=== PATIENT | male | born 1940 | race African-American/Black ===

== ENCOUNTER 2018-04-30 12:34 | Inpatient (IN) | payer BC, OTHER ==
[2018-04-30 13:40] LABS: ADD MAN DIFF? NO
[2018-04-30] MEDS: SODIUM CHLORIDE 0.9% 1L BAG IV* (13:43)
[2018-04-30] MEDS: ACETAMINOPHEN 325 MG TAB PO (13:43)
[2018-04-30] MEDS: CEFEPIME 2GM/50 ML (PMX) 50 ML IVPB ×2 (13:43→21:45)
[2018-04-30 13:49] LABS: WHITE BLOOD COUNT 5.9 10^3/ul (4.8-10.8)
[2018-04-30 13:49] LABS: ABNORMAL IP MESSAGE 1; BASOPHILS % 0.3 % (0.0-2.0); HEMATOCRIT 37.5 % (42.0-52.0); LYMPHOCYTES # 0.5 10^3/ul (0.8-2.9); LYMPHOCYTES % 7.8 % (15.0-51.0); MEAN CORPUSCULAR HEMOGLOBIN 29.3 pg (29.0-33.0); MEAN CORPUSCULAR HGB CONC 34.7 g/dl (32.0-37.0); MEAN CORPUSCULAR VOLUME 84.7 fl (82.0-101.0); MEAN PLATELET VOLUME 11.1 fl (7.4-10.4); MONOCYTES % 0.7 % (0.0-11.0); NEUTROPHIL # 5.3 10^3/ul (1.6-7.5); PLATELET COUNT 120 10^3/UL (140-415); POSITIVE DIFF @See below; RED BLOOD COUNT 4.43 10^6/ul (4.70-6.10); RED CELL DISTRIBUTION WIDTH 13.3 % (11.5-14.5)
[2018-04-30 13:51] LABS: ADD UMIC YES; UR ASCORBIC ACID NEGATIVE (NEGATIVE); UR BILIRUBIN (Dip) NEGATIVE (NEGATIVE); UR BLOOD (Dip) 3+ mg/dL (NEGATIVE); UR CLARITY CLOUDY (CLEAR); UR COLOR AMBER (YELLOW); UR GLUCOSE (Dip) NEGATIVE (NEGATIVE); UR KETONES (Dip) NEGATIVE (NEGATIVE); UR LEUKOCYTE ESTERASE (Dip) 3+ Leu/ul (NEGATIVE); UR MUCUS FEW /HPF (NONE SEEN); UR NITRITE (Dip) POSITIVE (NEGATIVE); UR RBC > 182 /HPF (0-5); UR SPECIFIC GRAVITY (Dip) 1.011 (1.003-1.030); UR TOTAL PROTEIN (Dip) 3+ mg/dl (NEGATIVE); UR UROBILINOGEN (Dip) NEGATIVE (NEGATIVE); UR WBC > 182 /HPF (0-5)
[2018-04-30 14:04] LABS: ALANINE AMINOTRANSFERASE 28 IU/L (13-69); ALBUMIN 3.7 g/dl (3.3-4.9); ALBUMIN/GLOBULIN RATIO 1.08; ALKALINE PHOSPHATASE 168 IU/L (42-121); ANION GAP 13 (5-13); ASPARTATE AMINO TRANSFERASE 19 IU/L (15-46); BILIRUBIN,INDIRECT 1.4 mg/dl (0-1.1); BILIRUBIN,TOTAL 1.4 mg/dl (0.2-1.3); BLOOD UREA NITROGEN 18 mg/dl (7-20); CALCIUM 8.7 mg/dl (8.4-10.2); CARBON DIOXIDE 22 mmol/L (21-31); CHLORIDE 99 mmol/L (97-110); CREATININE 1.36 mg/dl (0.61-1.24); GLUCOSE 147 mg/dl (70-220); POTASSIUM 3.3 mmol/L (3.5-5.1); SODIUM 134 mmol/L (135-144); TOTAL PROTEIN 7.1 g/dl (6.1-8.1)
[2018-04-30] MEDS: VANCOMYCIN 1 GM (PMX) 250 ML IVPB (14:10)
[2018-04-30 14:16] LABS: TROPONIN-I < 0.012 ng/ml (0.000-0.120)
[2018-04-30] MEDS ORDERED: SOD CHLORIDE 0.9% 1,000 ML IV (15:02)
[2018-04-30] MEDS ORDERED: ONDANSETRON 4 MG INJ IV (15:30)
[2018-04-30] MEDS ORDERED: ACETAMINOPHEN 325 MG TAB PO (15:30)
[2018-04-30] MEDS: SOD CHLORIDE 0.9% 1,000 ML IV (17:59)
[2018-04-30] MEDS: POTASSIUM CHLORIDE (SR) 20 MEQ TAB PO (17:59)
[2018-04-30 18:56] LABS: LACTIC ACID 1.5 mmol/L (0.5-2.0)
[2018-04-30] MEDS: METOPROLOL 25 MG TAB PO (21:00)
[2018-04-30] MEDS: LOSARTAN 50 MG TAB PO (21:00)
[2018-04-30] MEDS: DORZOLAMIDE 2% 10 ML OPH BOTH EYES (21:30)
[2018-04-30] MEDS: BRIMONIDINE 0.2%-TIMOLOL 0.5% 5ML OPH BOTH EYES (21:30)
[2018-04-30] MEDS: FAMOTIDINE 20 MG TAB PO (21:46)
[2018-04-30] MEDS: ATORVASTATIN 40 MG TAB PO (21:46)
[2018-04-30] MEDS: LATANOPROST 0.005% 2.5 ML OPH BOTH EYES (22:47)
[2018-05-01] MEDS: DORZOLAMIDE 2% 10 ML OPH BOTH EYES ×2 (08:51→20:59)
[2018-05-01] MEDS: CEFEPIME 2GM/50 ML (PMX) 50 ML IVPB ×2 (08:51→22:03)
[2018-05-01] MEDS: BRIMONIDINE 0.2%-TIMOLOL 0.5% 5ML OPH BOTH EYES ×2 (08:51→20:59)
[2018-05-01] MEDS: FAMOTIDINE 20 MG TAB PO ×2 (08:52→21:00)
[2018-05-01] MEDS: ASPIRIN 81 MG TAB PO (08:52)
[2018-05-01] MEDS: FERROUS SULFATE (EC) 325 MG TAB PO (08:52)
[2018-05-01] MEDS: LOSARTAN 50 MG TAB PO ×2 (08:52→21:00)
[2018-05-01] MEDS: METOPROLOL 25 MG TAB PO ×2 (08:53→21:00)
[2018-05-01] MEDS: SOD CHLORIDE 0.9% 1,000 ML IV (09:37)
[2018-05-01 10:28] LABS: ADD MAN DIFF? NO
[2018-05-01 10:36] LABS: ABNORMAL IP MESSAGE 1; BASOPHILS % 0.3 % (0.0-2.0); EOSINOPHILS % 0.3 % (0.0-7.0); HEMATOCRIT 30.8 % (42.0-52.0); HEMOGLOBIN 10.8 g/dl (14.0-18.0); LYMPHOCYTES # 0.5 10^3/ul (0.8-2.9); MEAN CORPUSCULAR HEMOGLOBIN 29.7 pg (29.0-33.0); MEAN CORPUSCULAR HGB CONC 35.1 g/dl (32.0-37.0); MEAN CORPUSCULAR VOLUME 84.6 fl (82.0-101.0); MEAN PLATELET VOLUME 11.8 fl (7.4-10.4); MONOCYTE # 0.6 10^3/ul (0.3-0.9); MONOCYTES % 5.9 % (0.0-11.0); NEUTROPHIL # 9.3 10^3/ul (1.6-7.5); NEUTROPHILS % 86.2 % (39.0-77.0); PLATELET COUNT 109 10^3/UL (140-415); POSITIVE DIFF @See below; RED BLOOD COUNT 3.64 10^6/ul (4.70-6.10); RED CELL DISTRIBUTION WIDTH 13.6 % (11.5-14.5)
[2018-05-01 10:36] LABS: WHITE BLOOD COUNT 10.8 10^3/ul (4.8-10.8)
[2018-05-01 10:52] LABS: ANION GAP 6 (5-13); BLOOD UREA NITROGEN 24 mg/dl (7-20); CALCIUM 8.3 mg/dl (8.4-10.2); CARBON DIOXIDE 24 mmol/L (21-31); CHLORIDE 106 mmol/L (97-110); CREATINE KINASE 866 IU/L (23-200); CREATININE 1.19 mg/dl (0.61-1.24); GLUCOSE 116 mg/dl (70-220); MAGNESIUM 1.8 mg/dl (1.7-2.5); SODIUM 136 mmol/L (135-144)
[2018-05-01 11:03] LABS: CK INDEX 0.3; TROPONIN-I 0.059 ng/ml (0.000-0.120)
[2018-05-01] MEDS: LATANOPROST 0.005% 2.5 ML OPH BOTH EYES (20:59)
[2018-05-01] MEDS: ATORVASTATIN 40 MG TAB PO (21:00)
[2018-05-02 06:05] LABS: ADD MAN DIFF? NO
[2018-05-02 06:07] LABS: WHITE BLOOD COUNT 9.2 10^3/ul (4.8-10.8)
[2018-05-02 06:07] LABS: BASOPHILS % 0.2 % (0.0-2.0); EOSINOPHILS # 0.1 10^3/ul (0.0-0.5); EOSINOPHILS % 1.2 % (0.0-7.0); HEMOGLOBIN 10.8 g/dl (14.0-18.0); LYMPHOCYTES % 10.5 % (15.0-51.0); MEAN CORPUSCULAR HEMOGLOBIN 29.5 pg (29.0-33.0); MEAN CORPUSCULAR HGB CONC 34.8 g/dl (32.0-37.0); MEAN CORPUSCULAR VOLUME 84.7 fl (82.0-101.0); MEAN PLATELET VOLUME 11.3 fl (7.4-10.4); MONOCYTE # 0.8 10^3/ul (0.3-0.9); MONOCYTES % 9.2 % (0.0-11.0); NEUTROPHIL # 7.2 10^3/ul (1.6-7.5); NEUTROPHILS % 78.2 % (39.0-77.0); PLATELET COUNT 126 10^3/UL (140-415); POSITIVE DIFF @See below; RED BLOOD COUNT 3.66 10^6/ul (4.70-6.10); RED CELL DISTRIBUTION WIDTH 13.3 % (11.5-14.5)
[2018-05-02 06:29] LABS: PHOSPHORUS 2.5 mg/dl (2.5-4.9)
[2018-05-02 06:29] LABS: MAGNESIUM 1.9 mg/dl (1.7-2.5)
[2018-05-02 06:31] LABS: ANION GAP 6 (5-13); BLOOD UREA NITROGEN 18 mg/dl (7-20); CALCIUM 8.5 mg/dl (8.4-10.2); CARBON DIOXIDE 24 mmol/L (21-31); CHLORIDE 107 mmol/L (97-110); CREATININE 1.07 mg/dl (0.61-1.24); GLUCOSE 98 mg/dl (70-220); POTASSIUM 3.8 mmol/L (3.5-5.1); SODIUM 137 mmol/L (135-144)
[2018-05-02] MEDS: DORZOLAMIDE 2% 10 ML OPH BOTH EYES ×2 (09:11→20:51)
[2018-05-02] MEDS: BRIMONIDINE 0.2%-TIMOLOL 0.5% 5ML OPH BOTH EYES ×2 (09:11→20:51)
[2018-05-02] MEDS: ASPIRIN 81 MG TAB PO (09:11)
[2018-05-02] MEDS: METOPROLOL 25 MG TAB PO ×2 (09:12→20:52)
[2018-05-02] MEDS: FAMOTIDINE 20 MG TAB PO ×2 (09:12→20:52)
[2018-05-02] MEDS: FERROUS SULFATE (EC) 325 MG TAB PO (09:12)
[2018-05-02] MEDS: LOSARTAN 50 MG TAB PO ×2 (09:13→20:52)
[2018-05-02] MEDS: CEFEPIME 2GM/50 ML (PMX) 50 ML IVPB (09:13)
[2018-05-02] MEDS: CIPROFLOXACIN 400MG/D5W 200 ML IVPB ×2 (11:43→20:53)
[2018-05-02] MEDS: LATANOPROST 0.005% 2.5 ML OPH BOTH EYES (20:52)
[2018-05-02] MEDS: ATORVASTATIN 40 MG TAB PO (20:52)
[2018-05-03 06:13] LABS: ADD MAN DIFF? NO
[2018-05-03 06:15] LABS: WHITE BLOOD COUNT 5.9 10^3/ul (4.8-10.8)
[2018-05-03 06:15] LABS: BASOPHILS % 0.3 % (0.0-2.0); EOSINOPHILS # 0.2 10^3/ul (0.0-0.5); EOSINOPHILS % 3.2 % (0.0-7.0); HEMATOCRIT 31.1 % (42.0-52.0); LYMPHOCYTES # 1.1 10^3/ul (0.8-2.9); LYMPHOCYTES % 18.4 % (15.0-51.0); MEAN CORPUSCULAR HEMOGLOBIN 29.4 pg (29.0-33.0); MEAN CORPUSCULAR HGB CONC 35.4 g/dl (32.0-37.0); MEAN CORPUSCULAR VOLUME 83.2 fl (82.0-101.0); MEAN PLATELET VOLUME 11.3 fl (7.4-10.4); MONOCYTE # 0.7 10^3/ul (0.3-0.9); NEUTROPHILS % 66.9 % (39.0-77.0); PLATELET COUNT 144 10^3/UL (140-415); RED BLOOD COUNT 3.74 10^6/ul (4.70-6.10); RED CELL DISTRIBUTION WIDTH 13.3 % (11.5-14.5)
[2018-05-03 06:54] LABS: ANION GAP 9 (5-13); BLOOD UREA NITROGEN 17 mg/dl (7-20); CALCIUM 8.8 mg/dl (8.4-10.2); CARBON DIOXIDE 25 mmol/L (21-31); CHLORIDE 104 mmol/L (97-110); CREATININE 0.86 mg/dl (0.61-1.24); GLUCOSE 95 mg/dl (70-220); POTASSIUM 3.8 mmol/L (3.5-5.1); SODIUM 138 mmol/L (135-144)
[2018-05-03] MEDS: FAMOTIDINE 20 MG TAB PO (08:44)
[2018-05-03] MEDS: LOSARTAN 50 MG TAB PO (08:44)
[2018-05-03] MEDS: ASPIRIN 81 MG TAB PO (08:44)
[2018-05-03] MEDS: METOPROLOL 25 MG TAB PO (08:44)
[2018-05-03] MEDS: FERROUS SULFATE (EC) 325 MG TAB PO (08:44)
[2018-05-03] MEDS: CIPROFLOXACIN 400MG/D5W 200 ML IVPB (08:44)
[2018-05-03] MEDS: DORZOLAMIDE 2% 10 ML OPH BOTH EYES (08:45)
[2018-05-03] MEDS: BRIMONIDINE 0.2%-TIMOLOL 0.5% 5ML OPH BOTH EYES (08:45)
[2018-05-03] MEDS ORDERED: LACTOBACILLUS RHAMNOSUS CAP PO (11:30)
== END 2018-05-03 12:19 | disposition home or self-care (01) | DRG 872 ==
LOC: E/R 12:34 → TEL 15:03
DX: A41.51 Sepsis due to Escherichia coli [E. coli] (principal); N39.0 Urinary tract infection, site not specified; N17.9 Acute kidney failure, unspecified; I25.10 Atherosclerotic heart disease of native coronary artery without angina pectoris; Z95.1 Presence of aortocoronary bypass graft; I10 Essential (primary) hypertension; E78.5 Hyperlipidemia, unspecified; E87.6 Hypokalemia; D64.9 Anemia, unspecified
CPT/HCPCS: 36415; 71045; 76775; 80048; 80053; 81001; 82550; 82553; 83605; 83735; 84100; 84484; 85025; 87040; 87086; 93005; 96374; 96375; 99291-25